=== PATIENT | male | born 1960 ===

== ENCOUNTER → 2017-10-23 | Emergency (ER) | payer OTHER ==
[~2017-10-23] VITALS: Ht 182.9 cm; Wt 72.6 kg
[~2017-10-23] MED LIST: DIAZEPAM10 MG PO; DICLOFENAC SODI50 MG PO; NORFLEX100MG PO; PROTONIX40 MG; ZANTAC300 MG
== END | disposition home or self-care (01) ==
LOC: ER 10:18
DX: S61.412A Laceration without foreign body of left hand, initial encounter (principal); W45.8XXA Other foreign body or object entering through skin, initial encounter; Y93.89 Activity, other specified; Y92.89 Other specified places as the place of occurrence of the external cause; Y99.8 Other external cause status

== ENCOUNTER 2017-11-08 15:51 | Emergency (ER) | payer OTHER ==
[~2017-11-08] VITALS: Ht 182.9 cm; Wt 72.6 kg
== END 2017-11-08 17:53 | disposition home or self-care (01) ==
LOC: ER 15:51
DX: Z48.02 Encounter for removal of sutures (principal)

== ENCOUNTER → 2017-11-26 | Emergency (ER) | payer OTHER ==
[~2017-11-26] VITALS: Ht 182.9 cm; Wt 72.6 kg
[~2017-11-26] MED LIST changes: +AMOX-CLAV 875-1 EACH PO; +INTESTINEX680 M1 PO
== END | disposition home or self-care (01) ==
LOC: ER 21:32
DX: L03.012 Cellulitis of left finger (principal)